=== PATIENT | female | born 1950 | race Caucasian/White ===

== ENCOUNTER 2019-12-29 05:26 | Outpatient (CLI) | payer BC, OTHER ==
[2019-12-30 12:16] LABS: SARS-CoV-2 MS2 Positive; SARS-CoV-2 N Gene Negative; SARS-CoV-2 S Gene Negative; SARS-CoV-2 orf1ab Negative
== END 2019-12-29 05:27 | disposition home or self-care (01) ==
LOC: LABBT 05:26
PROVIDERS: ATTEND Ophthalmology Retina Specialist
DX: Z01.812 Encounter for preprocedural laboratory examination (principal); Z11.59 Encounter for screening for other viral diseases; H54.7 Unspecified visual loss
CPT/HCPCS: 87635; U0003

== ENCOUNTER 2020-01-01 07:31 | Day surgery (SDC) | payer BC ==
[2019-12-29 12:24] VITALS: BMI 32.8
[~2020-01-01 07:31] MED LIST: EPINEPHrine 0.3 MG in Ophthalmic Irrigation Solution 500 ML IRR SCH
[2020-01-01] MEDS ORDERED: Cyclopentolate 1% Opth Drop 2 ML BOT ONE (07:53)
[2020-01-01] MEDS ORDERED: Phenylephrine 2.5% Ophth Soln 5 ML BOT ONE (07:53)
[2020-01-01] MEDS ORDERED: Midazolam HCl 2 mg/2 ml Vial ONE (08:43)
[2020-01-01] MEDS ORDERED: Fentanyl 100 MCG/2 ML VIAL ONE (08:43)
--- NOTE | 2020-01-01 10:34 | OP ---
DATE OF PROCEDURE: 01/01/2020 PREOPERATIVE DIAGNOSIS: Macular hole, left eye. POSTOPERATIVE DIAGNOSIS: Macular hole, left eye. PROCEDURES PERFORMED: 1. 25-gauge pars plana vitrectomy, left eye. 2. Internal limiting membrane peel, left eye. 3. 15% SF6 fill, left eye. ESTIMATED BLOOD LOSS: None. SPECIMENS REMOVED: None. COMPLICATIONS: None. ANESTHESIA: MAC with subtenon's block. SUMMARY OF OPERATION: The patient was identified in the preoperative holding area. The correct eye being the left eye was marked for surgery. The patient was taken to the operating room, where MAC anesthesia was induced. A left eye was prepped and draped in usual sterile ophthalmic fashion for surgery. A wire clip lid speculum was placed. An inferonasal conjunctival peritomy was fashioned with Rose Marie scissors after administration of subtenon's block. The block consisted of 1:1 ratio of 4% lidocaine and 0.75% Marcaine. A total of 5 mL was administered. A standard 25-gauge pars plana vitrectomy platform was fashioned with trocars placed approximately 4 mm from the limbus. The infusion was noted to be within the vitreous cavity prior to being turned onto infusion pressure of 30 mmHg. The light pipe and microvitrector were introduced in the eye under visualization of the BIOM viewing system. A careful core and peripheral shave vitrectomy were performed. Following completion of vitrectomy, ICG dye was used to stain the internal limiting membrane. Using the Hayden ILM forceps, the internal limiting membrane was peeled in a circumferential fashion about the fovea. The peel extended approximately 2 disk diameters in radius circumferentially. Following completion of peeling, the microvitrector was reintroduced in the eye to remove any residual vitreous debris. A 360-degree scleral depressed exam of the periphery revealed no defects. An air-fluid exchange was performed followed by an air-gas exchange with 15% SF6. The cannulas were sequentially removed. All sclerotomies were noted to be gas tight. Subconjunctival Ancef and Kenalog were injected. The wire clip lid speculum was removed followed by application of TobraDex ophthalmic ointment and a light patch and shield. The patient tolerated the procedure well, and was taken to outpatient recovery area in good condition. Job ID: [id number]
[2020-01-01] MEDS ORDERED: Maxitrol 0.1% Opth Oint 3.5 GM TUBE ONE (11:46)
[2020-01-01] MEDS ORDERED: Lidocaine 4% PF 5 ML AMP ONE (11:46)
[2020-01-01] MEDS ORDERED: Triamcinolone 40 MG/ML VIAL ONE (11:46)
[2020-01-01] MEDS ORDERED: Indocyanine Green 25 MG/10 ML VIAL ONE (11:46)
[2020-01-01] MEDS ORDERED: CEFAZOLIN 1 GM VIAL ONE (11:46)
[2020-01-01] MEDS ORDERED: Lidocaine 1% PF 5 ML VIAL ONE (11:46)
[2020-01-01] MEDS ORDERED: Bupivacaine PF 0.75% SDV 10 ML ONE (11:46)
[2020-01-01] MEDS ORDERED: PROPOFOL 200 MG/20 ML VIAL ONE (11:46)
== END 2020-01-01 10:40 | disposition home or self-care (01) ==
LOC: SDC 07:31
PROVIDERS: ATTEND Ophthalmology Retina Specialist
PROC: 08NF3ZZ Release Left Retina, Percutaneous Approach (ICD-10-PCS; principal; 2020-01-01)
PROC: 08T53ZZ Resection of Left Vitreous, Percutaneous Approach (ICD-10-PCS; principal; 2020-01-01)
DX: H35.342 Macular cyst, hole, or pseudohole, left eye (principal); Z88.8 Allergy status to other drugs, medicaments and biological substances
CPT/HCPCS: 67025; J0171; J0690; J2001; J2250; J2704; J3010; J3301; J3490